=== PATIENT | male | born 1990 | race African-American/Black ===

== ENCOUNTER 2020-07-29 03:05 | Emergency (ER) | payer OTHER ==
[2020-07-29] MEDS ORDERED: IBUPROFEN 400 MG TABLET (FP) PO ONE ×2 (03:14→03:17)
[2020-07-29 03:16] VITALS: BP 106/66; PULSE 69; TEMP 97.9; BMI 32.8
== END 2020-07-29 03:20 | disposition home or self-care (01) ==
LOC: FER 03:05
DX: S86.811A Strain of other muscle(s) and tendon(s) at lower leg level, right leg, initial encounter (principal)
CPT/HCPCS: 99283-25

== ENCOUNTER 2020-11-24 19:36 | Emergency (ER) | payer OTHER ==
[2020-11-24 19:42] VITALS: TEMP 98.5; BMI 32.8
[2020-11-24 20:09] VITALS: BP 133/81; PULSE 75
== END 2020-11-24 20:14 | disposition home or self-care (01) ==
LOC: FER 19:36
DX: H93.13 Tinnitus, bilateral (principal)
CPT/HCPCS: 99282-25

== ENCOUNTER 2020-12-25 23:29 | Emergency (ER) | payer OTHER ==
[2020-12-25 23:37] VITALS: BP 112/70; PULSE 74; TEMP 98.6; BMI 31.4
== END 2020-12-26 00:19 | disposition home or self-care (01) ==
LOC: FER 23:29
DX: S60.221A Contusion of right hand, initial encounter (principal)
CPT/HCPCS: 73130-TC-RT-FY; 99283-25

== ENCOUNTER 2021-02-18 20:28 | Emergency (ER) | payer OTHER ==
[2021-02-18 20:37] VITALS: BP 110/76; PULSE 71; TEMP 98.1; BMI 32.3
== END 2021-02-18 21:22 | disposition home or self-care (01) ==
LOC: FER 20:28
PROC: 0H9AXZZ Drainage of Inguinal Skin, External Approach (ICD-10-PCS; principal; 2021-02-18)
DX: L02.214 Cutaneous abscess of groin (principal)
CPT/HCPCS: 10060; 99285-25

== ENCOUNTER 2021-04-09 21:04 | Emergency (ER) | payer OTHER ==
[2021-04-09 21:29] VITALS: BP 117/75; PULSE 74; TEMP 98; BMI 30.7
== END 2021-04-09 22:57 | disposition home or self-care (01) ==
LOC: FER 21:04
DX: S83.91XA Sprain of unspecified site of right knee, initial encounter (principal); Y35.811A Legal intervention involving manhandling, law enforcement official injured, initial encounter
CPT/HCPCS: 73560-TC-RT-FY; 99283-25

== ENCOUNTER 2021-09-29 13:06 | Emergency (ER) | payer OTHER ==
[2021-09-29] MEDS ORDERED: ACETAMINOPHEN 325 MG TABLET (FP) PO ONE (13:41)
[2021-09-29] MEDS ORDERED: ACETAMINOPHEN 325 MG TABLET (FP) ONE (13:42)
[2021-09-29 13:54] VITALS: BP 126/76; PULSE 76; TEMP 98
== END 2021-09-29 14:21 | disposition home or self-care (01) ==
LOC: FER 13:06
DX: M79.642 Pain in left hand (principal)
CPT/HCPCS: 99283-25

== ENCOUNTER 2022-04-12 12:33 | Emergency (ER) | payer OTHER ==
[2022-04-12 12:38] VITALS: BP 137/70; PULSE 90; RESP 18; TEMP 98.9; BMI 33.5
== END 2022-04-12 13:25 | disposition home or self-care (01) ==
LOC: FER 12:33
DX: S80.01XA Contusion of right knee, initial encounter (principal); S80.02XA Contusion of left knee, initial encounter; S60.413A Abrasion of left middle finger, initial encounter; S60.415A Abrasion of left ring finger, initial encounter; W19.XXXA Unspecified fall, initial encounter
CPT/HCPCS: 99282-25

== ENCOUNTER 2022-05-17 11:33 | Emergency (ER) | payer OTHER ==
[2022-05-17 11:52] VITALS: BP 117/77; PULSE 68; RESP 16; TEMP 98.9; BMI 33.2
== END 2022-05-17 12:01 | disposition home or self-care (01) ==
LOC: FER 11:33
DX: Z77.21 Contact with and (suspected) exposure to potentially hazardous body fluids (principal)
CPT/HCPCS: 99281-25

== ENCOUNTER 2023-12-26 20:39 | Emergency (ER) | payer OTHER ==
[2023-12-26 20:50] VITALS: BP 124/82; PULSE 90; RESP 16; TEMP 99; BMI 33.2
[2023-12-26] MEDS ORDERED: IBUPROFEN 600 MG TABLET (FP) PO ONE (21:06)
[2023-12-26] MEDS: IBUPROFEN 600 MG TABLET (FP) PO ONE (21:06)
== END 2023-12-26 21:35 | disposition home or self-care (01) ==
LOC: FER 20:39
DX: S83.92XA Sprain of unspecified site of left knee, initial encounter (principal); S70.12XA Contusion of left thigh, initial encounter; S80.212A Abrasion, left knee, initial encounter; W50.0XXA Accidental hit or strike by another person, initial encounter; Y99.0 Civilian activity done for income or pay
CPT/HCPCS: 73562-TC-LT-FY; 99283-25

== ENCOUNTER 2024-03-26 22:16 | Emergency (ER) | payer OTHER ==
[2024-03-26 22:24] VITALS: BP 133/82; PULSE 73; RESP 18; TEMP 98.6; BMI 33.2
== END 2024-03-26 23:19 | disposition home or self-care (01) ==
LOC: FER 22:16
DX: S86.912A Strain of unspecified muscle(s) and tendon(s) at lower leg level, left leg, initial encounter (principal); S90.111A Contusion of right great toe without damage to nail, initial encounter; W20.8XXA Other cause of strike by thrown, projected or falling object, initial encounter; Y35.811A Legal intervention involving manhandling, law enforcement official injured, initial encounter
CPT/HCPCS: 73660-TC-FY; 99283-25